=== PATIENT | male | born 1935 | race Caucasian/White ===

== ENCOUNTER 2017-10-08 03:36 | Observation (INO) | payer MEDICARE ==
[2017-10-08] MEDS ORDERED: SODIUM CHLORIDE 0.9% 1,000 ML IV STA (03:40)
--- NOTE | 2017-10-08 03:41 | ED ---
General Adult HPI - General Stated complaint: Chest pain Time Seen by Provider: 10/08/17 03:40 Source: RN notes reviewed, old records reviewed - History of Present Illness Initial comments: This is an 81-year-old male to the ER for evaluation. Presents today for evaluation regards to anterior chest pain. History of heart disease history of ND. - Related Data Home Medications Medication Instructions Recorded Confirmed Cholecalciferol [Vitamin D3] 1,000 unit PO DAILY 11/04/14 11/04/14 Cinnamon Bark [Cinnamon] 1,000 mg PO DAILY 11/04/14 11/04/14 Clopidogrel [Plavix] 75 mg PO DAILY 11/04/14 11/04/14 Doxazosin [Cardura] 4 mg PO DAILY 11/04/14 11/04/14 Famotidine 40 mg PO DAILY 11/04/14 11/04/14 Metoprolol Succinate (ER) [Toprol 12.5 mg PO BID 11/04/14 11/04/14 Xl] Pravastatin Sodium [Pravachol] 40 mg PO HS 11/04/14 11/04/14 Vits A,C,E/Lutein/Minerals 1 each PO DAILY 11/04/14 11/04/14 [Ocuvite with Lutein Tablet] Allergies Allergy/AdvReac Type Severity Reaction Status Date / Time No Known Allergies Allergy Verified 10/08/17 03:46 Review of Systems ROS Statement: Those systems with pertinent positive or pertinent negative responses have been documented in the HPI. ROS Other: All systems not noted in ROS Statement are negative. Past Medical History Past Medical History: GERD/Reflux, Hyperlipidemia, Hypertension, Myocardial Infarction ([place]) Last Myocardial Infarction Date:: 2001 History of Any Multi-Drug Resistant Organisms: None Reported Past Surgical History: Heart Catheterization With Stent, Hernia Repair Additional Past Surgical History / Comment(s): inguinal Past Anesthesia/Blood Transfusion Reactions: No Reported Reaction Date of Last Stent Placement:: 2001 Smoking Status: Former smoker - Past Family History Brother(s) Family Medical History: Deep Vein Thrombosis (DVT) Father Family Medical History: Cancer General Exam General appearance: alert, in no apparent distress Head exam: Present: atraumatic, normocephalic, normal inspection Eye exam: Present: normal appearance, PERRL, EOMI. Absent: scleral icterus, conjunctival injection, periorbital swelling ENT exam: Present: normal exam, mucous membranes moist Neck exam: Present: normal inspection. Absent: tenderness, meningismus, lymphadenopathy Respiratory exam: Present: normal lung sounds bilaterally. Absent: respiratory distress, wheezes, rales, rhonchi, stridor Cardiovascular Exam: Present: regular rate, normal rhythm, normal heart sounds. Absent: systolic murmur, diastolic murmur, rubs, gallop, clicks GI/Abdominal exam: Present: soft, normal bowel sounds. Absent: distended, tenderness, guarding, rebound, rigid Extremities exam: Present: normal inspection, full ROM, normal capillary refill. Absent: tenderness, pedal edema, joint swelling, calf tenderness Back exam: Present: normal inspection Neurological exam: Present: alert, oriented X3, CN II-XII intact Psychiatric exam: Present: normal affect, normal mood Skin exam: Present: warm, dry, intact, normal color. Absent: rash Course Vital Signs 10/08/17 03:43 Temperature 97.0 F L Pulse Rate 50 L Respiratory 16 Rate Blood Pressure 133/62 O2 Sat by Pulse 99 Oximetry - Reevaluation(s) Reevaluation #1: 10/08/17 05:48 Patient still complaints of continued chest pain currently Reevaluation #2: 10/08/17 05:48 Medical record is reviewed EKG Findings - EKG Comments: EKG Findings:: EKG shows sinus bradycardia rate of 50, NM 108, QRS 06, QTc 457 Medical Decision Making - Medical Decision Making 81 male to ER for evaluation, positive chest pain, positive strong heart history. Patient to be admitted for cardiac observation - Lab Data Result diagrams: 10/08/17 03:45 10/08/17 03:45 Lab Results 10/08/17 10/08/17 10/08/17 Range/Units 03:45 03:45 03:45 WBC 7.8 (3.8-10.6) k/uL RBC 4.85 (4.30-5.90) m/uL Hgb 15.8 (13.0-17.5) gm/dL Hct 45.0 (39.0-53.0) % MCV 92.6 (80.0-100.0) fL MCH 32.5 (25.0-35.0) pg MCHC 35.1 (31.0-37.0) g/dL RDW 13.7 (11.5-15.5) % Plt Count 157 (150-450) k/uL Neutrophils % 55 % Lymphocytes % 28 % Monocytes % 8 % Eosinophils % 4 % Basophils % 1 % Neutrophils # 4.3 (1.3-7.7) k/uL Lymphocytes # 2.2 (1.0-4.8) k/uL Monocytes # 0.6 (0-1.0) k/uL Eosinophils # 0.3 (0-0.7) k/uL Basophils # 0.1 (0-0.2) k/uL PT (9.0-12.0) sec INR (<1.2) APTT (22.0-30.0) sec D-Dimer (<0.60) mg/L FEU Sodium 138 (137-145) mmol/L Potassium 4.9 (3.5-5.1) mmol/L Chloride 105 (98-107) mmol/L Carbon Dioxide 26 (22-30) mmol/L Anion Gap 7 mmol/L BUN 19 (9-20) mg/dL Creatinine 1.10 (0.66-1.25) mg/dL Est GFR (CKD-EPI)AfAm 72 (>60 ml/min/1.73 sqM) Est GFR (CKD-EPI)NonAf 62 (>60 ml/min/1.73 sqM) Glucose 114 H (74-99) mg/dL Calcium 9.1 (8.4-10.2) mg/dL Magnesium 2.0 (1.6-2.3) mg/dL Total Bilirubin 0.6 (0.2-1.3) mg/dL AST 32 (17-59) U/L ALT 45 (21-72) U/L Alkaline Phosphatase 81 (38-126) U/L Total Creatine Kinase 66 (55-170) U/L CK-MB (CK-2) 2.4 (0.0-2.4) ng/mL CK-MB (CK-2) Rel Index 3.6 Troponin I 0.042 H* (0.000-0.034) ng/mL Total Protein 6.1 L (6.3-8.2) g/dL Albumin 3.5 (3.5-5.0) g/dL Lipase 92 (23-300) U/L 10/08/17 Range/Units 03:45 WBC (3.8-10.6) k/uL RBC (4.30-5.90) m/uL Hgb (13.0-17.5) gm/dL Hct (39.0-53.0) % MCV (80.0-100.0) fL MCH (25.0-35.0) pg MCHC (31.0-37.0) g/dL RDW (11.5-15.5) % Plt Count (150-450) k/uL Neutrophils % % Lymphocytes % % Monocytes % % Eosinophils % % Basophils % % Neutrophils # (1.3-7.7) k/uL Lymphocytes # (1.0-4.8) k/uL Monocytes # (0-1.0) k/uL Eosinophils # (0-0.7) k/uL Basophils # (0-0.2) k/uL PT 10.7 (9.0-12.0) sec INR 1.1 (<1.2) APTT 24.0 (22.0-30.0) sec D-Dimer 0.69 H (<0.60) mg/L FEU Sodium (137-145) mmol/L Potassium (3.5-5.1) mmol/L Chloride (98-107) mmol/L Carbon Dioxide (22-30) mmol/L Anion Gap mmol/L BUN (9-20) mg/dL Creatinine (0.66-1.25) mg/dL Est GFR (CKD-EPI)AfAm (>60 ml/min/1.73 sqM) Est GFR (CKD-EPI)NonAf (>60 ml/min/1.73 sqM) Glucose (74-99) mg/dL Calcium (8.4-10.2) mg/dL Magnesium (1.6-2.3) mg/dL Total Bilirubin (0.2-1.3) mg/dL AST (17-59) U/L ALT (21-72) U/L Alkaline Phosphatase (38-126) U/L Total Creatine Kinase (55-170) U/L CK-MB (CK-2) (0.0-2.4) ng/mL CK-MB (CK-2) Rel Index Troponin I (0.000-0.034) ng/mL Total Protein (6.3-8.2) g/dL Albumin (3.5-5.0) g/dL Lipase (23-300) U/L - Radiology Data Radiology results: report reviewed (Chest x-ray negative for acute disease), image reviewed Critical Care Time Critical Care Time: Yes Total Critical Care Time: 31 Disposition Clinical Impression: Unstable angina pectoris, Chest pain, Bradycardia Disposition: ADMITTED IP TO THIS [facility] Condition: Undetermined Instructions: Chest Pain (ED) Is patient prescribed a controlled substance at d/c from ED?: No Referrals: Negrito Tiwari MD [Primary Care Provider] - 1-2 days
[2017-10-08 04:15] LABS: Albumin 3.5 g/dL (3.5-5.0); Calcium 9.1 mg/dL (8.4-10.2); Potassium 4.9 mmol/L (3.5-5.1); Total Bilirubin 0.6 mg/dL (0.2-1.3); Total Protein 6.1 g/dL (6.3-8.2)
[2017-10-08 04:19] LABS: INR 1.1 (<1.2); Prothrombin Time 10.7 sec (9.0-12.0)
--- NOTE | 2017-10-08 04:19 | XR ---
EXAMINATION TYPE: XR chest 2V DATE OF EXAM: 10/08/2017 COMPARISON: NONE HISTORY: Chest pain TECHNIQUE: Frontal and lateral views of the chest are obtained. FINDINGS: Heart and mediastinum are normal. There is slight blunting of left costophrenic angle. The re are small linear density at the left lung base. There are chest leads. There is no heart failure. IMPRESSION: Mild pleural reaction and subsegmental atelectasis at the left lung base. Normal heart.
[2017-10-08 04:22] LABS: Basophils # (A) 0.1 k/uL (0-0.2); Basophils % (A) 1 %; D-Dimer 0.69 mg/L FEU (<0.60); Eosinophils # (A) 0.3 k/uL (0-0.7); Eosinophils % (A) 4 %; HGB 15.8 gm/dL (13.0-17.5); Lymphocytes # (A) 2.2 k/uL (1.0-4.8); Lymphocytes % (A) 28 %; MCH 32.5 pg (25.0-35.0); MCHC 35.1 g/dL (31.0-37.0); MCV 92.6 fL (80.0-100.0); Mean Platelet Volume 7.2; Monocytes # (A) 0.6 k/uL (0-1.0); Monocytes % (A) 8 %; Neutrophils # (A) 4.3 k/uL (1.3-7.7); Neutrophils % (A) 55 %; Platelet Count 157 k/uL (150-450); RBC 4.85 m/uL (4.30-5.90); RDW 13.7 % (11.5-15.5); WBC 7.8 k/uL (3.8-10.6)
[2017-10-08 04:46] LABS: Creatine Kinase MB 2.4 ng/mL (0.0-2.4)
[2017-10-08 04:54] LABS: Troponin I 0.042 ng/mL (0.000-0.034)
[2017-10-08] MEDS ORDERED: HEPARIN SODIUM,PORCINE 5,000 UNIT/ML 1 ML VIAL IV PRN (05:46)
[2017-10-08] MEDS ORDERED: HEPARIN SODIUM,PORCINE 5,000 UNIT/ML 1 ML VIAL IV ONE (05:46)
[2017-10-08] MEDS ORDERED: NITROGLYCERIN SL TABS 0.4 MG TAB SUBLINGUAL PRN (05:46)
[2017-10-08] MEDS ORDERED: ASPIRIN 81 MG PO STA (05:46)
[2017-10-08] MEDS: HEPARIN SOD,PORK IN 0.45% NACL 25,000 UNIT in 0.45% NACL 1 500ML.BAG IV SCH (06:02)
[2017-10-08] MEDS ORDERED: METOPROLOL TARTRATE 25 MG TAB PO SCH (09:00)
[2017-10-08 10:05] LABS: Mean Platelet Volume 7.5; Platelet Count 151 k/uL (150-450)
--- NOTE | 2017-10-08 10:15 | P.HPIM ---
History of Present Illness H&P Date: 10/08/17 Chief Complaint: Chest pain Patient is an 81-year-old male past medical history of coronary artery disease with history of stenting 2 1999, hypertension, dyslipidemia, and GERD who presented to the hospital via EMS with complaints of chest pain. In the ER he underwent an extensive evaluation. On arrival he was found to be bradycardic with a heart rate of 50 blood pressure was 133/62. Initial laboratory analysis revealed slightly elevated troponin at 0.042. 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 Patient was started on a heparin drip. Arrangements were made for admission and cardiology was consulted. Patient seen and examined in the emergency department. He states that he woke up at approximately 2 AM with sudden onset chest pain. He states that it was retrosternal without radiation. It lasted approximately 30 minutes. Was not associated with shortness of breath, nausea, lightheadedness, diaphoresis, numbness, or tingling. His reports that he looked pale. He denies any palpitations. He took 2 nitro and the chest pain was relieved. He also felt stat that time. His also reports that he has had edema for the last 2 weeks. He denies any recent cough, cold, fever, flu. No abdominal pain. No issues with his acid reflux. His last medication that was changed was the initiation of Flomax that was approximately 2 months ago. He is suffering from urinary incontinence. He does see a retail client solutions analyst on a regular basis. His retail client solutions analyst is Dr. Abdullahi Richard in [place]. He states that his last stress test was nuclear was approximately 2 years ago. His last cardiac stent was in 1999. His brother did have a history of heart disease and no other family members with heart disease. Review of Systems Positives: Chest pain, chronic incontinence, pallor Pertinent positives and negatives as discussed in HPI, a complete review of systems was performed and all other systems are negative. Past Medical History Past Medical History: Coronary Artery Disease (CAD), GERD/Reflux, Hyperlipidemia , Hypertension, Myocardial Infarction ([place]) Additional Past Medical History / Comment(s): Fall, BPH, prior syncopal episodes , urinary incontinence Last Myocardial Infarction Date:: 2001 History of Any Multi-Drug Resistant Organisms: None Reported Past Surgical History: Heart Catheterization With Stent, Hernia Repair Additional Past Surgical History / Comment(s): inguinal, bilateral cataract Past Anesthesia/Blood Transfusion Reactions: No Reported Reaction Date of Last Stent Placement:: 2001 Smoking Status: Former smoker Past Alcohol Use History: Occasional Additional History: Lives with , chronically uses a walker. - Past Family History Brother(s) Family Medical History: Deep Vein Thrombosis (DVT) Father Family Medical History: Cancer, Coronary Artery Disease (CAD) Medications and Allergies Home Medications Medication Instructions Recorded Confirmed Type Cholecalciferol [Vitamin D3] 1,000 unit PO DAILY 11/04/14 10/08/17 History Cinnamon Bark [Cinnamon] 1,000 mg PO BID 11/04/14 10/08/17 History Clopidogrel [Plavix] 75 mg PO DAILY 11/04/14 10/08/17 History Famotidine 40 mg PO HS 11/04/14 10/08/17 History Metoprolol Succinate (ER) [Toprol 12.5 mg PO DAILY 11/04/14 10/08/17 History Xl] Pravastatin Sodium [Pravachol] 40 mg PO HS 11/04/14 10/08/17 History Vits A,C,E/Lutein/Minerals 1 tab PO DAILY 11/04/14 10/08/17 History [Ocuvite with Lutein Tablet] Donepezil [Aricept] 5 mg PO DAILY 10/08/17 10/08/17 History Memantine HCl [Namenda] 5 mg PO HS 10/08/17 10/08/17 History Solifenacin Succinate [Vesicare] 10 mg PO HS 10/08/17 10/08/17 History Terazosin HCl 1 mg PO HS 10/08/17 10/08/17 History Turmeric Root Extract [Turmeric] 500 mg PO DAILY 10/08/17 10/08/17 History Allergies Allergy/AdvReac Type Severity Reaction Status Date / Time No Known Allergies Allergy Verified 10/08/17 08:35 Physical Exam Osteopathic Statement: *. No significant issues noted on an osteopathic structural exam other than those noted in the History and Physical/Consult. Vitals: Vital Signs Temp Pulse Resp BP Pulse Ox 10/08/17 09:00 63 18 127/64 10/08/17 06:04 97.4 F L 57 L 16 153/72 98 10/08/17 03:43 97.0 F L 50 L 16 133/62 99 Intake and Output 10/07/17 10/08/17 10/08/17 22:59 06:59 14:59 Other: Weight 77.111 kg General: non toxic, no distress, appears at stated age, normal weight, pleasant Derm: no unusual rashes/lesions no unusual ecchymoses, warm, dry Head: atraumatic, normocephalic, symmetric Eyes: EOMI, no lid lag, anicteric sclera, pupils equal round reactive to light ENT: Nose and ears atraumatic, no thrush, no pharyngeal erythema Neck: No thyromegaly, no cervical lymphadenopathy, trachea midline, supple Mouth: no lip lesion, mucus membranes moist Cardiovascular: S1S2 reg, no murmur, positive posterior tibial pulse bilateral, trace ankle edema, capillary refill less than 2 seconds, chest pain not reproducible to palpation Lungs: CTA bilateral, no rhonchi, no rales , no accessory muscle use Abdominal: soft, nontender to palpation, no guarding, no appreciable organomegaly, normal bowel sounds Ext: no gross muscle atrophy, muscle strength 5 out of 5 in all 4 extremities grossly, no contractures, Neuro: CN II-XI grossly intact, light touch intact all 4 extremities, finger to nose within normal limits, Psych: Alert, oriented, appropriate affect Results CBC & Chem 7: 10/08/17 03:45 10/08/17 03:45 Labs: Abnormal Lab Results - Last 24 Hours (Table) 10/08/17 10/08/17 10/08/17 Range/Units 03:45 03:45 03:45 D-Dimer 0.69 H (<0.60) mg/L FEU Glucose 114 H (74-99) mg/dL Troponin I 0.042 H* (0.000-0.034) ng/mL Total Protein 6.1 L (6.3-8.2) g/dL Comments: EKG is reviewed by myself reveals normal sinus rhythm at a rate of 50, incomplete right bundle branch block, left anterior fascicular block, no significant ST-T wave changes. Chest x-ray: report reviewed Thrombosis Risk Factor Assmnt - DVT/VTE Prophylaxis DVT/VTE Prophylaxis: Pharmacologic Prophylaxis ordered Assessment and Plan Assessment: Chest pain with indeterminate troponin and history of coronary artery disease -on heparin drip, continue home Plavix, beta rachael, statin -Cardiology consult pending -Attempt to obtain old EKG from retail client solutions analyst's office as now has incomplete right bundle and left anterior fascicular block -Await repeat troponin -Aspirin -Telemetry -Echocardiogram - imdur added per cardio Hypertension, controlled - metroprolol parameters added Dyslipidemia -Transition to Lipitor -Check cholesterol profile GERD - H2 rachael BPH - carduria - oxybutynin The patient is placed in observation with an anticipated less than 2 per night stay for evaluation of chest pain with positive troponins. Surrogate decision-maker: Carol- spouse DVT prophylaxis: on heparin gtt Discussed with: Patient, Night time physicians, , ED nursing Anticipated discharge date: 10/[address]: home A total of 65 minutes was spent on the care of this complex patient more than 50 % of the time was spent in counseling and care coordination.
[2017-10-08] MEDS: ATORVASTATIN 80 MG TAB PO SCH (10:30)
[2017-10-08] MEDS: CLOPIDOGREL 75 MG TAB PO SCH (10:31)
[2017-10-08] MEDS: DONEPEZIL 5 MG TAB PO SCH (10:32)
--- NOTE | 2017-10-08 10:38 | CONS ---
CONSULTATION CHIEF COMPLAINT: Chest pain. Mr. Lakhani is an 81-year-old gentleman with history of known coronary artery disease, status post prior angioplasty more than 15 years ago, who follows with a wood getter in [facility], presents to hospital complaining of chest pain. He states that he woke up from sleep with moderate to severe intensity precordial chest pain without radiation to neck, arm or back, unrelated to exertion, unassociated with diaphoresis. It persisted for a while, he was concerned, came to the ER and is admitted to the hospital. The first set of troponin is elevated at 0.04. D-dimer is 0.69, hemoglobin is 15.8. The patient is currently on IV heparin, pain-free and hemodynamically stable. His clinical presentation is consistent with a diagnosis of non ST-segment elevation MA. Will obtain a 2D echo on him to assess LV function, wall motion and to rule out significant valvular heart disease. I talked to patient about undergoing cardiac catheterization for possible angioplasty. Patient understanding risks, benefits, does not want to have any invasive angiography and wishes to be treated with medication. He is currently on aspirin, statin, heparin, beta blockers. I will add nitrates and I will obtain a 2D echo. PAST MEDICAL HISTORY: Significant for coronary artery disease, status post angioplasty, hypertension, dyslipidemia. CURRENT MEDICATIONS: Include Pravachol, Toprol, Aricept, Plavix, cinnamon, vitamin D. ALLERGIES: There are no known drug allergies. FAMILY HISTORY: Negative for premature coronary artery disease. SOCIAL HISTORY: Negative for smoking, EtOH abuse, or drug abuse. REVIEW OF SYSTEMS: HEENT is unremarkable. CARDIAC: As described above. RESPIRATORY: Negative. GI: Negative. GENITOURINARY: Negative. ALLERGY/IMMUNOLOGY: Negative. SKIN: Negative. MUSCULOSKELETAL: Negative. ENDOCRINE: Negative. DERMATOLOGIC: Negative. ONCOLOGICAL: Negative. ENTER[employer]OURCE PL[employer]NER: Significant for dementia. PHYSICAL EXAM: Patient is comfortable at rest. Vital signs are stable. There is no jugular venous distention. Carotid upstroke is normal. There is no bruit. Chest exam reveals good air entry bilaterally. Heart exam reveals first and second heart sounds. No gallop. Has an systolic murmur at the apex. Abdomen is soft. Exam of the extremities did not reveal edema. Peripheral pulses are felt. EKG shows sinus bradycardia and nonspecific ST-T wave changes. ASSESSMENT: 1. Acute non ST-segment elevation myocardial infarction. 2. Hypertension. 3. Dyslipidemia. PLAN: Will treat the patient with optimal medical therapy. Review echocardiogram. Hopefully, he can be discharged home later tomorrow afternoon if he is clinically stable and the troponins do not become significantly elevated. JAGRUTI / LINDA: [id number] /
[2017-10-08 10:44] LABS: Creatine Kinase MB 2.2 ng/mL (0.0-2.4)
[2017-10-08 11:01] LABS: Troponin I 0.043 ng/mL (0.000-0.034)
[2017-10-08] MEDS: ISOSORBIDE MONONITRATE ER 30 MG TAB.ER.24H PO SCH (11:19)
--- NOTE | 2017-10-08 12:32 | ECHOF ---
Referral Reason:chest pain MEASUREMENTS -------- HEIGHT: 172.7 cm WEIGHT: 77.1 kg BP: 164/74 IVSd: 1.2 cm (0.6 - 1.1) LVIDd: 4.5 cm (3.9 - 5.3) LVPWd: 1.3 cm (0.6 - 1.1) IVSs: 1.5 cm LVIDs: 3.4 cm LVPWs: 1.4 cm LA Diam: 3.7 cm (2.7 - 3.8) LAESV Index (A-L): 32.40 ml/m Ao Diam: 2.9 cm (2.0 - 3.7) AV Cusp: 1.6 cm (1.5 - 2.6) LA Diam: 3.7 cm (2.7 - 3.8) MV EXCURSION: 19.089 mm (> 18.000) MV EF SLOPE: 118 mm/s (70 - 150) EPSS: 0.5 cm MV E Catalino: 0.52 m/s MV DecT: 197 ms MV A Catalino: 0.53 m/s MV E/A Ratio: 0.98 RAP: 5.00 mmHg RVSP: 13.89 mmHg FINDINGS -------- Sinus rhythm. This was a technically adequate study. The left ventricular size is normal. There is mild concentric left ventricular hypertrophy. Overa ll left ventricular systolic function is low-normal with, an EF between 50 - 55 %. The right ventricle is normal in size. The left atrial size is normal. The right atrial size is normal. There is mild aortic valve sclerosis. There is no evidence of aortic regurgitation. Mild mitral annular calcification present. Mild mitral regurgitation is present. Mild tricuspid regurgitation present. There is no evidence of pulmonary hypertension. The right v entricular systolic pressure, as measured by Doppler, is 13.89mmHg. There is no pulmonic regurgitation present. The aortic root size is normal. There is no pericardial effusion. CONCLUSIONS -------- 1. The left ventricular size is normal. 2. There is mild concentric left ventricular hypertrophy. 3. Overall left ventricular systolic function is low-normal with, an EF between 50 - 55 %. 4. The right ventricle is normal in size. 5. The left atrial size is normal. 6. The right atrial size is normal. 7. There is mild aortic valve sclerosis. 8. Mild mitral annular calcification present. 9. Mild mitral regurgitation is present. 10. Mild tricuspid regurgitation present. 11. There is no evidence of pulmonary hypertension. 12. The right ventricular systolic pressure, as measured by Doppler, is 13.89mmHg. 13. There is no pulmonic regurgitation present. 14. The aortic root size is normal. 15. There is no pericardial effusion. MENTAL MEASUREMENTS TEACHER: Jessica Borden RDCS
[2017-10-08] MEDS: SODIUM CHLORIDE 0.9% 1,000 ML IV SCH ×2 (16:24→16:25)
[2017-10-08 16:56] LABS: Creatine Kinase MB 1.4 ng/mL (0.0-2.4)
[2017-10-08 17:03] LABS: Troponin I 0.043 ng/mL (0.000-0.034)
[2017-10-08] MEDS ORDERED: MEMANTINE 5 MG TAB PO SCH (21:00)
[2017-10-08] MEDS ORDERED: NON-FORMULARY DRUG (Cinnamon Bark [Cinnamon] 1,000 MG) PO SCH (21:00)
[2017-10-08] MEDS ORDERED: FAMOTIDINE 20 MG TAB PO SCH (21:00)
[2017-10-08] MEDS ORDERED: OXYBUTYNIN 10 MG TAB.ER.24 PO SCH (21:00)
[2017-10-08] MEDS ORDERED: DOXAZOSIN 1 MG TAB PO SCH (21:00)
[2017-10-09 06:18] LABS: Mean Platelet Volume 7.4; Platelet Count 142 k/uL (150-450)
[2017-10-09 06:49] LABS: Cholesterol 108 mg/dL (<200); HDL Cholesterol 44 mg/dL (40-60); LDL Cholesterol,Calculated 52 mg/dL (0-99); Triglycerides 62 mg/dL (<150)
[2017-10-09] MEDS: SODIUM CHLORIDE 0.9% 1,000 ML IV SCH ×2 (06:51→11:29)
[2017-10-09 08:03] VITALS: BP 137/82; RESP 18; TEMP 97
[2017-10-09 08:06] VITALS: PULSE 47
[2017-10-09] MEDS: ATORVASTATIN 80 MG TAB PO SCH (08:27)
[2017-10-09] MEDS: ISOSORBIDE MONONITRATE ER 30 MG TAB.ER.24H PO SCH (08:28)
[2017-10-09] MEDS: DONEPEZIL 5 MG TAB PO SCH (08:28)
[2017-10-09] MEDS: CLOPIDOGREL 75 MG TAB PO SCH (08:28)
[2017-10-09] MEDS ORDERED: METOPROLOL SUCCINATE (ER) 25 MG TAB.ER.24H PO SCH (09:00)
[2017-10-09] MEDS ORDERED: ASPIRIN 325 MG TAB PO SCH (09:00)
[2017-10-09] MEDS: HEPARIN SOD,PORK IN 0.45% NACL 25,000 UNIT in 0.45% NACL 1 500ML.BAG IV SCH (10:41)
--- NOTE | 2017-10-09 11:08 | P.DS ---
Providers Date of admission: 10/08/17 05:47 Expected date of discharge: 10/09/17 Attending physician: Manoj Maxwell MD Consults: 10/08/17 05:46 Consult Physician Urgent Consulting Provider: Jose C Garnica Consult Reason/Comments: cp Do you want consulting provider notified?: Yes Primary care physician: Negrito Tiwari - Discharge Diagnosis(es) (1) NSTEMI (non-ST elevated myocardial infarction) Status: Acute (2) HTN (hypertension) Status: Acute (3) HLD (hyperlipidemia) Status: Acute (4) GERD (gastroesophageal reflux disease) Status: Acute (5) BPH (benign prostatic hyperplasia) Status: Acute (6) Bradycardia Status: Acute Hospital Course: Patient is an 81-year-old male past medical history of coronary artery disease with history of stenting 2 in 1999, hypertension, dyslipidemia, and GERD who presented to the hospital via EMS with complaints of chest pain. In the ER he underwent an extensive evaluation. On arrival he was found to be bradycardic with a heart rate of 50 blood pressure was 133/62. Initial laboratory analysis revealed slightly elevated troponin at 0.042. 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 Patient was started on a heparin drip. Arrangements were made for observation and cardiology was consulted. He was seen by cardiology. He underwent an echocardiogram which showed preserved ejection fraction of 50-55% and no significant valvular disease. His troponin was trended and remained flat. Options of cardiac cath versus medication were discussed with the patient by cardiology and he elected for medication management at this point in time. He was also noted to have bradycardia and his metoprolol was held during hospitalization. He was discharged home off of metoprolol. He was started on Imdur to assist with his angina by cardiology. Cholesterol profile was checked and total cholesterol was 108 with LDL 52 and therefore his maintained on pravastatin. He did not have any recurrence of his chest pain during his hospitalization. He will follow-up with Dr. Tiwari on October 11 and his mortician supplies sales representative Dr. Richard on 10/22. He was told to return to the hospital should his chest pain recur. Patient seen and examined at bedside. No additional chest pain, shortness of breath, lightheadedness, or dizziness. Per he had one episode of increased anxiety prior to being transferred to the floor which abated after arriving to the floor and being able to leave [facility]. Vital signs reviewed and stable. General:Non toxic , no distress, appears at stated age Derm: warm, dry Head: atraumatic, normocephalic, symmetric Eyes: EOMI, no lid lag, anicteric sclera Mouth: no lip lesion, mucus membranes moist Cardiovascular: S1S2 reg, no murmur, positive posterior tibial pulse bilateral, Lungs: CTA bilateral, no rhonchi, no rales , no accessory muscle use Abdominal: soft, nontender to palpation, no guarding, no appreciable organomegaly Ext: no gross muscle atrophy, no edema, no contractures Neuro: CN II-XI grossly intact, no focal neuro deficits Psych: Alert, oriented, appropriate affect A total of 25 minutes of time were spent preparing this complex discharge summary . Pertinent Studies: Echocardiogram-EF 50-55%, mild aortic valve sclerosis, mild mitral regurg, mild tricuspid regurg, no evidence of pulmonary hypertension with RVSP 13.89 Patient Condition at Discharge: Stable Plan - Discharge Summary Discharge Rx Participant: No New Discharge Prescriptions: New Aspirin [Adult Low Dose Aspirin EC] 81 mg PO DAILY #30 tablet.dr Isosorbide Mononitrate ER [Imdur] 30 mg PO DAILY #30 tab.er.24h Continue Cholecalciferol [Vitamin D3] 1,000 unit PO DAILY Pravastatin Sodium [Pravachol] 40 mg PO HS Famotidine 40 mg PO HS Clopidogrel [Plavix] 75 mg PO DAILY Vits A,C,E/Lutein/Minerals [Ocuvite with Lutein Tablet] 1 tab PO DAILY Cinnamon Bark [Cinnamon] 1,000 mg PO BID Turmeric Root Extract [Turmeric] 500 mg PO DAILY Terazosin HCl 1 mg PO HS Solifenacin Succinate [Vesicare] 10 mg PO HS Memantine HCl [Namenda] 5 mg PO HS Donepezil [Aricept] 5 mg PO DAILY Discontinued Metoprolol Succinate (ER) [Toprol Xl] 12.5 mg PO DAILY Discharge Medication List Cholecalciferol [Vitamin D3] 1,000 unit PO DAILY 11/04/14 [History] Cinnamon Bark [Cinnamon] 1,000 mg PO BID 11/04/14 [History] Clopidogrel [Plavix] 75 mg PO DAILY 11/04/14 [History] Famotidine 40 mg PO HS 11/04/14 [History] Pravastatin Sodium [Pravachol] 40 mg PO HS 11/04/14 [History] Vits A,C,E/Lutein/Minerals [Ocuvite with Lutein Tablet] 1 tab PO DAILY 11/04/14 [History] Donepezil [Aricept] 5 mg PO DAILY 10/08/17 [History] Memantine HCl [Namenda] 5 mg PO HS 10/08/17 [History] Solifenacin Succinate [Vesicare] 10 mg PO HS 10/08/17 [History] Terazosin HCl 1 mg PO HS 10/08/17 [History] Turmeric Root Extract [Turmeric] 500 mg PO DAILY 10/08/17 [History] Aspirin [Adult Low Dose Aspirin EC] 81 mg PO DAILY #30 tablet.dr 10/09/17 [Rx] Isosorbide Mononitrate ER [Imdur] 30 mg PO DAILY #30 tab.er.24h 10/09/17 [Rx] Follow up Appointment(s)/Referral(s): [facility], [NON-STAFF] - Negrito Tiwari MD [Primary Care Provider] - 10/11/17 10:30 am Yuri Richard MD [REFERRING] - 10/22/17 11:15 am Patient Instructions/Handouts: Chest Pain (ED), Heart Healthy Diet (DC) Activity/Diet/Wound Care/Special Instructions: Follow-up with your mortician supplies sales representative Dr. Richard in 1-2 for further evaluation, You can follow with Dr. Becerra if you prefer to switch to someone closer to [place] heart healthy diet, activity as tolerated Discharge Disposition: HOME WITH HOME HEALTH SERVICES
--- NOTE | 2017-10-09 11:41 | P.PN ---
Subjective Progress Note Date: 10/09/17 This is an 81-year-old gentleman with past medical history consistent for hypertension, diabetes, coronary artery disease with prior stent placement in 1999, GERD, who presented to the hospital with symptoms of chest discomfort which lasted approximately 30 minutes in duration. On arrival he was found to be bradycardic with a heart rate of 50 blood pressure 133/60. Troponins 0.04, 0.04, 0.04. Echocardiogram with Doppler study was performed which revealed an ejection fraction of 50-55%. Blood pressure 137/80 with a heart rate in the 40s to 50s, 98% on 2 L of oxygen. We will continue the patient on maximal medical therapy, he is quite eager to be discharged home, ranging are being made for him to go home this afternoon. We will discontinue the IV heparin. Objective - Vital Signs Vital signs: Vital Signs Temp 97.0 F L 10/09/17 08:00 Pulse 65 10/09/17 08:00 Resp 18 10/09/17 08:00 BP 137/82 10/09/17 08:00 Pulse Ox 98 10/09/17 08:00 Intake & Output 10/08/17 10/09/17 10/09/17 18:59 06:59 18:59 Intake Total 370.733 225.387 Output Total 200 Balance 370.733 25.387 Weight 80.2 kg Intake: Intake, IV Titration 130.733 225.387 Amount Heparin Sod,Pork in 0.45% 130.733 225.387 NaCl 25,000 unit In 0.45 % NaCl 1 500ml.bag @ 12 UNITS/KG/HR 18.5 mls/hr IV .Q24H [facility] Rx#: [id number] Oral 240 Output: Urine 200 Other: # Voids 2 - Exam PHYSICAL EXAMINATION: GENERAL: 81-year-old gentleman in no apparent distress at the time of my examination. HEENT: Head is atraumatic, normocephalic. Pupils equal, round. Sclera anicteric. Conjunctiva are clear. Mucous membranes of the mouth are moist. Neck is supple. There is no elevated jugular venous pressure.] bruit is heard. HEART EXAMINATION: Heart S1, S2 systolic murmur heard . No murmur or gallop heard. CHEST EXAMINATION: Lungs are clear to auscultation and precussion. No chest wall tenderness is noted on palpation or with deep breathing. ABDOMEN: Soft, nontender. Bowel sounds are heard. No organomegaly noted. EXTREMITIES: 2+ peripheral pulses with no evidence of peripheral edema and no calf tenderness noted. NEUROLOGIC patient is awake, alert and oriented -3. . - Labs CBC & Chem 7: 10/09/17 05:58 10/08/17 03:45 Labs: Abnormal Lab Results - Last 24 Hours (Table) 10/08/17 10/08/17 10/08/17 Range/Units 11:43 16:04 20:00 Plt Count (150-450) k/uL APTT 111.0 H* 54.3 H (22.0-30.0) sec Total Creatine Kinase 50 L (55-170) U/L Troponin I 0.043 H* (0.000-0.034) ng/mL 10/09/17 10/09/17 Range/Units 05:58 05:58 Plt Count 142 L (150-450) k/uL APTT 51.2 H (22.0-30.0) sec Total Creatine Kinase (55-170) U/L Troponin I (0.000-0.034) ng/mL Assessment and Plan Plan: Assessment and plan #1 chest discomfort with mild abnormality in troponin, no significant rise and fall pattern, cannot completely rule out non-Q-wave myocardial infarction. Medical therapy advised. Echocardiogram with Doppler study was performed which revealed a normal left ventricular systolic function. #2 hyperlipidemia #3 hypertension #4 BPH Plan From cardiology's perspective, we'll decrease aspirin 81 mg daily, continue Lipitor, Plavix, Imdur, metoprolol. He may be able to be discharged home once cleared by primary. We'll make him a follow-up appointment in the office post discharge. DNP note has been reviewed, I agree with a documented findings and plan of care. Patient was seen and examined.
[2017-10-09] MEDS ORDERED: CHOLECALCIFEROL 1,000 UNIT TAB PO SCH (12:00)
[2017-10-09] MEDS ORDERED: VIT A,C & E-LUTEIN-MINERALS 1 EACH TAB PO SCH (12:00)
== END 2017-10-09 12:09 | disposition home health service (06) ==
LOC: EC 03:36 → 6SEL 05:47
PROVIDERS: ADMIT Internal Medicine; ATTEND Internal Medicine
DX: I21.4 Non-ST elevation (NSTEMI) myocardial infarction (principal); I25.110 Atherosclerotic heart disease of native coronary artery with unstable angina pectoris; I10 Essential (primary) hypertension; E78.5 Hyperlipidemia, unspecified; K21.9 Gastro-esophageal reflux disease without esophagitis; N40.1 Benign prostatic hyperplasia with lower urinary tract symptoms; I45.10 Unspecified right bundle-branch block; R00.1 Bradycardia, unspecified; Z95.5 Presence of coronary angioplasty implant and graft; I25.2 Old myocardial infarction; Z79.02 Long term (current) use of antithrombotics/antiplatelets; Z79.899 Other long term (current) drug therapy; Z87.891 Personal history of nicotine dependence; Z83.2 Family history of diseases of the blood and blood-forming organs and certain disorders involving the immune mechanism; Z91.81 History of falling; R32 Unspecified urinary incontinence; Z80.9 Family history of malignant neoplasm, unspecified; Z82.49 Family history of ischemic heart disease and other diseases of the circulatory system
CPT/HCPCS: 99291 ×2; 96365 ×2; 96366 ×17; 96376 ×2; 96361 ×3; 36415; 93005; 93306; 85379; 80061; 80053; 82550; 82553; 83690; 83735; 84484; 85025; 85049 ×2; 85610; 85730 ×2; 71046; G0378 ×2; J1644 ×2